=== PATIENT | male | born 1965 | race Caucasian/White ===

== ENCOUNTER → 2021-05-24 | Outpatient (CLI) | payer OTHER ==
[~2021-05-24] MED LIST: ATORVASTATIN CA20 MG PO; CARDIO TAB PO; COQ-10100 MG PO; ZYRTEC10 M5 PO
== END ==
LOC: LAB 08:17
PROVIDERS: ATTEND Student in an Organized Health Care Education/Training Program
DX: Z01.812 Encounter for preprocedural laboratory examination (principal); Z20.822 Contact with and (suspected) exposure to COVID-19

== ENCOUNTER → 2021-05-26 | Outpatient (CLI) | payer OTHER ==
[~2021-05-26] VITALS: Ht 182.9 cm; Wt 78.5 kg
--- NOTE | 2021-05-26 13:48 | P ---
[facility] [place] [address] PROCEDURE REPORT Name: MIKO COLEN Room #: REG AMAIRANI Annette.#: [id number] Admission: 05/26/21 Attend Phys: Senthil Manuel Discharge: Date of : 67 Report #: [id number] THIS REPORT FOR: cc: Tristan Benites MD, Rene P. MD McElhinney, Christian C. MD ~ cc: Tristan Benites MD DATE OF SERVICE: 05/26/2021 PROCEDURE PERFORMED: Colonoscopy with biopsies. HISTORY OF PRESENT ILLNESS: The patient is a 56-year-old male with a history of colon polyps 5 years ago, here for routine followup. Denies any symptoms other than hemorrhoid burning at times. No family history of colon cancer. DESCRIPTION OF PROCEDURE: The risks and benefits of the procedure were explained to the patient, those risks including but not limited to bleeding, perforation and the risk of sedation. He understood these risks and gave informed consent. Sedation was given using propofol per Anesthesia. Next, a digital rectal exam was initially performed, which was normal. Next, using a standard Olympus colonoscope, the scope was placed in the patient's anus and advanced under direct vision to the cecum. The overall prep was excellent. The cecum and ileocecal valve were normal in appearance. There was a 4 mm sessile polyp in the ascending colon. This was removed with cold forceps, otherwise normal. The transverse, descending and sigmoid colon were normal. The rectal mucosa was normal. On retroflexion, small nonbleeding internal hemorrhoids were noted. Close examination of the anal canal showed small external hemorrhoid component. No evidence of bleeding. No evidence of anal fissure. The scope was then withdrawn and the procedure terminated. The patient tolerated the procedure well. IMPRESSION: 1. Small colonic polyp. 2. Small internal and external hemorrhoids. 3. Otherwise, normal colonoscopy. RECOMMENDATIONS: 1. Await biopsy results. 2. If polyp is hyperplastic, repeat in 10 years; if adenomatous polyp, repeat in 5 years. 3. Analpram on a p.r.n. basis. [facility] [address] [place] [address] PROCEDURE REPORT Name: MIKO COLE Room #: [id number] Admission: 05/26/21 Attend Phys: Senthil Manuel Discharge: Date of : 67 Report #: [id number] Thank you for allowing me to participate in his care. <ELECTRONICALLY SIGNED> By: Senthil Goldsmith MD 05/26/21 1348 0904 0914 Senthil Goldsmith MD /nt
--- NOTE | 2021-05-31 13:08 | PATH ---
[facility] [address] [place] [address] PATHOLOGY RPT PROCEDURE Name: MIKO COLE LACHELLE Room #: REG CL MRubina.#: [id number] Admission: 05/26/21 Date of : 67 Discharge: Report #: [id number] Path Case #: [id number] [facility] Accession Number: [id number] . 01 Material submitted: . colon - TRANSVERSE COLON POLYP BIOPSY. Modifiers: transverse . 01 Clinical history: . COLONOSCOPY HX POLYPS . 02 Diagnosis: Polyp, transverse colon polyp, endoscopic biopsy: - Tubular adenoma. - Negative for high-grade dysplasia. 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 02 Electronically signed: . Li West MD, Pathologist NPI- [id number] . 01 Gross description: . Received in formalin labeled "Berve, Miko, transverse colon polyp BX" are 2 fry-brown soft tissue fragments measuring in aggregate 0.6 x 0.5 x 0.1 cm. The specimen is submitted entirely in A1. ([facility]; 05/29/2021) [facility] 05/29/2021 1019 Local . 02 Pathologist provided ICD-10: D12.3 . 02 CPT . 318735 Specimen Comment: A courtesy copy of this report has been sent to [phone], [phone] Specimen Comment: [id number] Specimen Comment: Report sent to / DR JARA Specimen Comment: A duplicate report has been generated due to demographic updates. Performed at: [address] [facility], [place] [id number] MD Sheldon Enrique MD Phone: [phone] Performed at: [address] [id number] MD Li West MD Phone: [phone]
== END | disposition home or self-care (01) ==
LOC: GI → EDSTATUS 16:58 → GI 17:02
PROVIDERS: ATTEND Specialist
DX: Z12.11 Encounter for screening for malignant neoplasm of colon (principal); Z86.010 Personal history of colon polyps; D12.3 Benign neoplasm of transverse colon; K64.8 Other hemorrhoids; K64.4 Residual hemorrhoidal skin tags; E78.00 Pure hypercholesterolemia, unspecified; Z98.890 Other specified postprocedural states; Z79.899 Other long term (current) drug therapy
CPT/HCPCS: 62110; 62900